=== PATIENT | female | born 1945 | race Caucasian/White ===

== ENCOUNTER → 2017-12-10 | Outpatient (CLI) | payer OTHER ==
[~2017-12-10] MED LIST: DAYPRO600 M1 PO; GLYBURIDE2.5 MG PO; METFORMIN500 MG PO; ROBAXIN750 MG PO; VICODIN 500 MG-1 TAB PO
== END | disposition home or self-care (01) ==
LOC: RESCLI 01:18
DX: I10 Essential (primary) hypertension (principal); I82.499 Acute embolism and thrombosis of other specified deep vein of unspecified lower extremity; E78.2 Mixed hyperlipidemia; E11.9 Type 2 diabetes mellitus without complications; Z79.4 Long term (current) use of insulin

== ENCOUNTER 2019-05-16 21:54 | Inpatient (IN) | payer OTHER ==
[~2019-05-16] VITALS: Ht 149.9 cm; Wt 69.6 kg
[2019-05-16 22:00] VITALS: BP 153/71
[2019-05-17 03:45] VITALS: BP 133/54
[2019-05-17] MEDS ORDERED: XARELTO20 M1 PO (03:51)
[2019-05-17] MEDS ORDERED: AMLODIPINE BESY10 MG PO (03:52)
[2019-05-17] MEDS ORDERED: CITALOPRAM20 MG PO (03:55)
[2019-05-17] MEDS ORDERED: LOVASTATIN40 MG PO (03:55)
[2019-05-17] MEDS ORDERED: RELION NOV100 UNIT/1 SQ (03:56)
[2019-05-17] MEDS ORDERED: TRAMADOL HCL50 MG PO (03:57)
[2019-05-17 08:00] VITALS: BP 126/61
[2019-05-17 11:28] LABS: BASO % 0.3 % (0.0-1.0); EOS # 0.5 10*3/uL (0.0-0.4); EOS % 6.7 % (1.0-4.0); HEMATOCRIT 37.4 % (37.0-47.0); LYMPH # 1.6 10*3/uL (1.3-4.4); LYMPH % 22.7 % (27.0-41.0); MEAN CELL VOLUME 96.1 fl (81.0-99.0); MEAN CORPUSCULAR HGB 30.8 pg (27.0-31.0); MEAN CORPUSCULAR HGB CONC 32.1 g/dl (33.0-37.0); MEAN PLATELET VOLUME 10.6 fl (9.6-12.3); MONO # 0.6 10*3/uL (0.1-1.0); MONO % 7.8 % (3.0-9.0); NEUT # 4.5 10*3/uL (2.3-7.9); NEUT % 62.4 % (47.0-73.0); PLATELET COUNT AUTOMATED 233 10*3/uL (130-400); RED BLOOD COUNT 3.89 10*6/uL (4.10-5.10); RED CELL DISTRI WIDTH 13.4 % (0-14.5); WHITE BLOOD COUNT 7.2 10*3/uL (4.8-10.8)
[2019-05-17 11:47] LABS: ALKALINE PHOSPHATASE 103 U/L (45-117); BUN 8 mg/dl (7-24); CHLORIDE 115 mmol/L (98-107); CREATININE 0.69 mg/dL (0.55-1.02); POTASSIUM 3.2 mmol/L (3.5-5.1); SGOT/AST 21 IU/L (3-35); SGPT/ALT 30 U/L (12-78); SODIUM 143 mmol/L (136-145); TOTAL PROTEIN 6.1 gm/dL (6.4-8.2)
[2019-05-17 12:00] VITALS: BP 113/61
[2019-05-17 16:00] VITALS: BP 177/48
[2019-05-17 20:00] VITALS: BP 127/52
[2019-05-17 23:41] LABS: BILIRUBIN NEGATIVE (NEGATIVE); BLOOD NEGATIVE (NEGATIVE); CLARITY SL CLOUDY (CLEAR); COLOR YELLOW (YELLOW); GLUCOSE NEGATIVE (NEGATIVE); KETONE NEGATIVE (NEGATIVE); UROBILINOGEN 0.2 E.U./dl (0.2-1.0)
[2019-05-17 23:42] LABS: LEUKO ESTERASE TRACE (NEGATIVE); NITRITE POSITIVE (NEGATIVE)
[2019-05-17 23:51] LABS: BACTERIA 4+
[2019-05-18] VITALS: BP 138/53
[2019-05-18 07:12] LABS: BASO % 0.3 % (0.0-1.0); EOS # 0.6 10*3/uL (0.0-0.4); EOS % 9.6 % (1.0-4.0); HEMATOCRIT 36.3 % (37.0-47.0); HEMOGLOBIN 11.6 g/dl (12.0-16.0); LYMPH # 1.8 10*3/uL (1.3-4.4); LYMPH % 28.4 % (27.0-41.0); MEAN CELL VOLUME 96.8 fl (81.0-99.0); MEAN CORPUSCULAR HGB 30.9 pg (27.0-31.0); MEAN PLATELET VOLUME 10.8 fl (9.6-12.3); MONO # 0.5 10*3/uL (0.1-1.0); MONO % 8.5 % (3.0-9.0); NEUT # 3.3 10*3/uL (2.3-7.9); NEUT % 52.9 % (47.0-73.0); PLATELET COUNT AUTOMATED 220 10*3/uL (130-400); RED BLOOD COUNT 3.75 10*6/uL (4.10-5.10); RED CELL DISTRI WIDTH 13.3 % (0-14.5); WHITE BLOOD COUNT 6.3 10*3/uL (4.8-10.8)
[2019-05-18 07:45] LABS: ALBUMIN 2.8 gm/dl (3.1-4.5); BUN 9 mg/dl (7-24); CHLORIDE 114 mmol/L (98-107); SODIUM 143 mmol/L (136-145)
[2019-05-18 07:55] LABS: ALKALINE PHOSPHATASE 98 U/L (45-117); CHOLESTEROL 96 mg/dL (<200); CREATININE 0.64 mg/dL (0.55-1.02); FREE T4 0.79 ng/dl (0.76-1.46); HDL CHOLESTEROL 34 mg/dl (40-60); LDL CHOLESTEROL 27 mg/dL (9-159); PHOSPHOROUS 2.3 mg/dL (2.5-4.9); SGOT/AST 12 IU/L (3-35); SGPT/ALT 25 U/L (12-78); TRIGLYCERIDES 177 mg/dl (<150); VLDL CHOLESTEROL 35 mg/dL (6-40)
[2019-05-18 07:57] LABS: POTASSIUM 4.5 mmol/L (3.5-5.1)
[2019-05-18 08:00] VITALS: BP 149/47
[2019-05-18 08:18] LABS: VITAMIN D, 25-HYDROXY 29.9 ng/mL (30-100)
== END 2019-05-18 11:00 | disposition home or self-care (01) | DRG 914 ==
LOC: ED 21:54 → EDHOLD 05-17 03:14 → 4E 05-17 03:14
PROVIDERS: Registered Nurse; ADMIT Internal Medicine
DX: S79.911A Unspecified injury of right hip, initial encounter (principal); D68.59 Other primary thrombophilia; E44.0 Moderate protein-calorie malnutrition; E87.6 Hypokalemia; F41.1 Generalized anxiety disorder; E87.8 Other disorders of electrolyte and fluid balance, not elsewhere classified; I10 Essential (primary) hypertension; E11.65 Type 2 diabetes mellitus with hyperglycemia; W03.XXXA Other fall on same level due to collision with another person, initial encounter; Y93.89 Activity, other specified; Y92.89 Other specified places as the place of occurrence of the external cause; Y99.8 Other external cause status; Z85.42 Personal history of malignant neoplasm of other parts of uterus; Z90.49 Acquired absence of other specified parts of digestive tract; Z86.718 Personal history of other venous thrombosis and embolism; Z90.710 Acquired absence of both cervix and uterus; Z83.3 Family history of diabetes mellitus; Z80.1 Family history of malignant neoplasm of trachea, bronchus and lung; Z79.899 Other long term (current) drug therapy; Z68.31 Body mass index [BMI] 31.0-31.9, adult

== ENCOUNTER 2023-07-21 13:23 | Emergency (ER) | payer OTHER, MEDICARE ==
[~2023-07-21] VITALS: Ht 157.4 cm; Wt 66.3 kg
[~2023-07-21 13:23] MED LIST changes: +AMLODIPINE BESY10 MG PO; +CITALOPRAM20 MG PO; +LOVASTATIN40 MG PO; +RELION NOV100 UNIT/1 SQ; +TRAMADOL HCL50 MG PO; +XARELTO20 M1 PO
[2023-07-21] MEDS ORDERED: ACETAMINOPHEN 325 MG TAB PO ONE (13:30)
[2023-07-21] MEDS ORDERED: MORPHINE Sulfate 2 MG/ML SYR IV ONE (15:30)
[2023-07-21] MEDS ORDERED: PERCOCET 5-3251 EACH PO (15:37)
== END 2023-07-21 15:40 | disposition home or self-care (01) ==
LOC: ED 13:23
DX: S42.202A Unspecified fracture of upper end of left humerus, initial encounter for closed fracture (principal); I10 Essential (primary) hypertension; E11.9 Type 2 diabetes mellitus without complications; Z86.718 Personal history of other venous thrombosis and embolism; M19.90 Unspecified osteoarthritis, unspecified site; Z90.710 Acquired absence of both cervix and uterus; Z90.49 Acquired absence of other specified parts of digestive tract; W19.XXXA Unspecified fall, initial encounter; Y93.89 Activity, other specified; Y92.009 Unspecified place in unspecified non-institutional (private) residence as the place of occurrence of the external cause; Y99.8 Other external cause status

== ENCOUNTER 2023-09-18 08:39 | Emergency (ER) | payer MEDICARE ==
[~2023-09-18] VITALS: Ht 149.8 cm; Wt 60.3 kg
[~2023-09-18 08:39] MED LIST changes: +PERCOCET 5-3251 EACH PO
[2023-09-18] MEDS ORDERED: Acetaminophen/Oxycodone 5 MG/325 MG TABLET PO ONE (09:25)
== END 2023-09-18 11:24 | disposition home or self-care (01) ==
LOC: ED 08:39
DX: S01.112A Laceration without foreign body of left eyelid and periocular area, initial encounter (principal); W10.8XXA Fall (on) (from) other stairs and steps, initial encounter; Y93.01 Activity, walking, marching and hiking; Y92.89 Other specified places as the place of occurrence of the external cause; Y99.8 Other external cause status; E11.9 Type 2 diabetes mellitus without complications; Z90.710 Acquired absence of both cervix and uterus; Z90.49 Acquired absence of other specified parts of digestive tract

== ENCOUNTER 2024-05-20 13:52 | Emergency (ER) | payer MEDICARE ==
[~2024-05-20] VITALS: Wt 56.7 kg
[~2024-05-20 13:52] MED LIST changes: +AMLODIPINE BESYL5 MG PO; +CELECOXIB200 M1 PO; +DULOXETINE HCL60 MG PO; +HYDROXYCHLOROQ200 M1 PO; +IBANDRONATE SO150 M1 PO; +LOSARTAN POTASS25 M1 PO; +OMNICEF300 MG PO; +TRESIBA FL100 UNIT/1 SQ
[2024-05-20] MEDS ORDERED: Acetaminophen/Hydrocodone 5 MG/325 MG TABLET PO ONE (14:10)
[2024-05-20] MEDS ORDERED: HYDROCODONE-AC1 EAC1 PO (15:27)
== END 2024-05-20 14:48 | disposition home or self-care (01) ==
LOC: ED 13:52
DX: S42.211A Unspecified displaced fracture of surgical neck of right humerus, initial encounter for closed fracture (principal); S40.011A Contusion of right shoulder, initial encounter; I10 Essential (primary) hypertension; E11.9 Type 2 diabetes mellitus without complications; Z79.899 Other long term (current) drug therapy; Z79.4 Long term (current) use of insulin; Z90.710 Acquired absence of both cervix and uterus; Z96.642 Presence of left artificial hip joint; Z96.612 Presence of left artificial shoulder joint; Z90.49 Acquired absence of other specified parts of digestive tract; Z98.890 Other specified postprocedural states; W18.09XA Striking against other object with subsequent fall, initial encounter; Y93.89 Activity, other specified; Y92.89 Other specified places as the place of occurrence of the external cause; Y99.8 Other external cause status

== ENCOUNTER → 2024-06-02 | Day surgery (SDC) | payer MEDICARE ==
[~2024-06-02] VITALS: Ht 149.9 cm; Wt 54.4 kg
[~2024-06-02] MED LIST changes: +Balanced Salt Solution 500 ML OPH SCH; +Cefuroxime Sodium 5 MG in BALANCED SALT IRRIG SOLN NO.2 0.5 ML,SYRINGE, DISPOSABLE, 10 ... IO SCH; +HYDROCODONE-AC1 EAC1 PO; +Midazolam Hydrochloride 2 MG/2 ML VIAL IV ONE; +OFLOXACIN 0.3% 5 ML BOTTLE ONE; +OFLOXACIN 0.3% 5 ML BOTTLE OPH SCH; +PHENYLEPHRINE/KETOROLAC 4 ML in Balanced Salt Solution 500 ML OPH SCH; +POVIDONE IODINE 5% OPHTHALMIC 30 ML BOTTLE OPH ONE; +POVIDONE IODINE 5% OPHTHALMIC 30 ML BOTTLE OPH SCH; +Phenylephrine Hydrochloride 2 ML BOT OPH ONE; +Phenylephrine Hydrochloride 2 ML BOT OPH SCH; +Proparacaine Hydrochloride 15 ML BOT OPH ONE; +Proparacaine Hydrochloride 15 ML BOT OPH SCH; +SODIUM CHLORIDE 0.9% 1,000 ML IV SCH; +TROPICAMIDE 3 ML BOT OPH ONE; +TROPICAMIDE 3 ML BOT OPH SCH; +Tetracaine Hydrochloride 0.5% 4 ML BOT OPH ONE; +Tetracaine Hydrochloride 0.5% 4 ML BOT OPH SCH; +prednisoLONE acetate 1% OPHTHALMIC 5 ML BOT OPH ONE; +prednisoLONE acetate 1% OPHTHALMIC 5 ML BOT OPH SCH
[2024-06-02 07:09] VITALS: BP 142/54
[2024-06-02 08:20] VITALS: BP 124/55
[2024-06-02 08:35] VITALS: BP 111/63
[2024-06-02 08:50] VITALS: BP 146/59
== END | disposition home or self-care (01) ==
LOC: SDC 05-28 10:15
PROVIDERS: ATTEND Ophthalmology
DX: E11.36 Type 2 diabetes mellitus with diabetic cataract (principal); H25.812 Combined forms of age-related cataract, left eye; I10 Essential (primary) hypertension; E78.00 Pure hypercholesterolemia, unspecified; E03.9 Hypothyroidism, unspecified; F41.1 Generalized anxiety disorder; M06.9 Rheumatoid arthritis, unspecified; Z86.16 Personal history of COVID-19; Z87.440 Personal history of urinary (tract) infections; Z90.710 Acquired absence of both cervix and uterus; Z90.49 Acquired absence of other specified parts of digestive tract; Z96.612 Presence of left artificial shoulder joint; Z96.642 Presence of left artificial hip joint; Z98.890 Other specified postprocedural states; Z79.4 Long term (current) use of insulin; Z79.891 Long term (current) use of opiate analgesic; Z79.899 Other long term (current) drug therapy; Z83.3 Family history of diabetes mellitus

== ENCOUNTER → 2024-07-07 | Day surgery (SDC) | payer MEDICARE ==
[~2024-07-07] VITALS: Ht 149.8 cm; Wt 54.4 kg
[~2024-07-07] MED LIST changes: +prednisoLONE acetate 1% OPHTHALMIC 5 ML BOT ONE; -prednisoLONE acetate 1% OPHTHALMIC 5 ML BOT OPH ONE
[2024-07-07 07:08] VITALS: BP 131/50
[2024-07-07 08:07] VITALS: BP 147/52
[2024-07-07 08:37] VITALS: BP 132/41
== END | disposition home or self-care (01) ==
LOC: SDC 07-05 08:00
PROVIDERS: ATTEND Ophthalmology
DX: E11.36 Type 2 diabetes mellitus with diabetic cataract (principal); H25.11 Age-related nuclear cataract, right eye; I12.9 Hypertensive chronic kidney disease with stage 1 through stage 4 chronic kidney disease, or unspecified chronic kidney disease; E11.22 Type 2 diabetes mellitus with diabetic chronic kidney disease; N18.9 Chronic kidney disease, unspecified; M06.9 Rheumatoid arthritis, unspecified; Z96.642 Presence of left artificial hip joint; Z96.612 Presence of left artificial shoulder joint; Z87.440 Personal history of urinary (tract) infections; Z90.710 Acquired absence of both cervix and uterus; Z90.49 Acquired absence of other specified parts of digestive tract; Z98.890 Other specified postprocedural states; Z79.891 Long term (current) use of opiate analgesic; Z79.4 Long term (current) use of insulin; Z79.899 Other long term (current) drug therapy; Z83.3 Family history of diabetes mellitus